=== PATIENT | male | born 1995 | race African-American/Black ===

== ENCOUNTER → 2021-03-05 | Outpatient (CLI) | payer OTHER ==
[2021-03-05 16:51] LABS: BASO % 0.5 % (0.0-1.0); EOS # 0.1 10^3/uL (0.0-0.5); EOS % 0.9 % (0.0-3.0); HEMATOCRIT 37.9 % (42.0-52.0); HEMOGLOBIN 12.3 g/dl (13.5-17.5); LYMPH # 2.3 10^3/uL (1.5-5.0); LYMPH % 40.8 % (24.0-44.0); MEAN CORPUSCULAR HEMOGLOBIN 30.1 pg (27.0-33.0); MEAN CORPUSCULAR HGB CONC 32.5 g/dl (32.0-36.5); MEAN CORPUSCULAR VOLUME 92.9 fl (80.0-96.0); MONO # 0.6 10^3/uL (0.0-0.8); MONO % 11.2 % (2.0-8.0); NEUTROPHILS # 2.6 10^3/uL (1.5-8.5); NEUTROPHILS % 46.2 % (36.0-66.0); PLATELET COUNT, AUTOMATED 249 10^3/uL (150-450); RED BLOOD COUNT 4.08 10^6/uL (4.30-6.10); WHITE BLOOD COUNT 5.6 10^3/uL (4.0-10.0)
[2021-03-05 17:17] LABS: ERYTHROCYTE SEDIMENTATION RATE 5 mm/hr (0-15)
== END ==
LOC: M LAB 15:54
PROVIDERS: ATTEND Orthopaedic Surgery
DX: M79.604 Pain in right leg (principal)

== ENCOUNTER → 2021-04-03 | Outpatient (CLI) | payer OTHER ==
[~2021-04-03] MED LIST: PROHANCE 279.3MG/ML 15ML VIAL As Ordered ONE; PROHANCE 279.3MG/ML 5ML VIAL As Ordered ONE
--- NOTE | 2021-04-04 09:28 | REP ---
INDICATION: RT LOWER LEG PAIN ? BONE LESION. COMPARISON: None. TECHNIQUE: Multiple sequences obtained in the axial, coronal and sagittal planes prior to and following the intravenous administration of 16 mL ProHance. FINDINGS: In the medullary cavity of the diaphysis of the right tibia there is heterogeneous abnormal signal. Superiorly the zone of transition is wide and ill-defined. Inferiorly the zone of transition is sharply demarcated. This abnormal signal extends for a length of approximately 23.6 cm. The abnormality is decreased in signal on T1 and increased in signal on T2. There are areas of mild enhancement. The cortex is not involved. There is no periosteal reaction or soft tissue mass. No other abnormalities are seen. 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 The abnormal signal is heterogeneous, with areas of mild enhancement scattered throughout. The primary differential diagnostic possibilities would include fibrous dysplasia, lymphoma, bone infarct or chronic osteomyelitis. Recommend correlation with any prior radiographs and cross-sectional imaging. <Electronically signed by Lokesh Horne > 04/04/21 0980
== END ==
LOC: M RAD 15:47
PROVIDERS: ATTEND Orthopaedic Surgery
DX: M79.661 Pain in right lower leg (principal)
CPT/HCPCS: 73720; A9576

== ENCOUNTER 2021-04-23 14:34 | Emergency (ER) | payer OTHER ==
[~2021-04-23] VITALS: Ht 182.9 cm; Wt 87.5 kg
[2021-04-23 17:29] VITALS: BP 118/61
== END 2021-04-23 17:30 | disposition home or self-care (01) ==
LOC: M ED 14:34
DX: M79.604 Pain in right leg (principal); M79.605 Pain in left leg; Z88.1 Allergy status to other antibiotic agents